=== PATIENT | male | born 1995 | race African-American/Black ===

== ENCOUNTER → 2019-04-26 | Outpatient (CLI) | payer OTHER ==
--- NOTE | 2019-04-26 17:12 | REP ---
RIGHT KNEE, FIVE VIEWS: FINDINGS: There is no evidence of an acute fracture, dislocation or intrinsic bone disease. There is a mild to moderate joint effusion. IMPRESSION: No fracture or dislocation. There is a mild to moderate joint effusion. Electronically Signed by Brent Workman MD 04/27/2019 09:25 A
== END ==
LOC: M LRY 15:51
PROVIDERS: ATTEND Physician Assistant
DX: M25.461 Effusion, right knee (principal)
CPT/HCPCS: 73564; G0463

== ENCOUNTER → 2019-05-04 | Outpatient (CLI) | payer OTHER ==
--- NOTE | 2019-05-04 12:44 | REP ---
Right knee MRI: Comparison is a plain film study dated 04/26/2019. The MRI is performed with proton density and T2 data sets in sagittal, axial and coronal projections. There is a joint effusion. There is T2 signal throughout the lateral collateral ligament and lateral retinaculum compatible with lateral collateral ligament normal retinacular sprain. There is T2 marrow signal in the lateral femoral condyle and the lateral tibial plateau compatible with bone bruise and marrow edema. I suspect there is a compression fracture along the articular surface of the lateral tibial plateau in the midline slightly posterior measuring 5.4 mm depth and 7.4 mm transversely. The marrow edema is adjacent to this lesion. I suspect there is an intrasubstance tear of the lateral meniscus anterior horn extending to the meniscal capsular junction. However, I do not identify a meniscal capsular separation. The medial meniscus and medial compartment are unremarkable. The anterior posterior cruciate ligaments are unremarkable. The quadriceps and patellar tendons are unremarkable. There is a small volume of II signal along the medial retinaculum and medial collateral ligament compatible with mild sprain. Impression: Severe sprain of the lateral collateral ligament and lateral retinaculum. Mild strain of the medial collateral ligament and medial retinaculum. Suspect compression fracture of the lateral tibial plateau in the midline slightly posterior with marrow edema in the adjacent tibial plateau and in the lateral femoral condyle. I suspect a flap tear of the anterior horn of the lateral meniscus extending to the meniscocapsular junction. No evidence of meniscal capsular separation. There is a joint effusion. Electronically Signed by Brent Walls MD 05/04/2019 12:36 P
== END ==
LOC: M RAD 10:20
PROVIDERS: ATTEND Student in an Organized Health Care Education/Training Program
DX: M25.561 Pain in right knee (principal)